=== PATIENT | male | born 1950 | race Two or more races ===

== ENCOUNTER 2019-03-28 11:49 | Emergency (ER) | payer OTHER ==
[~2019-03-28] VITALS: Ht 175.3 cm; Wt 97.5 kg
[2019-03-28] MEDS ORDERED: EFFEXOR XR150 MG PO (12:24)
[2019-03-28] MEDS ORDERED: GABAPENTIN100 M2 PO (12:24)
[2019-03-28] MEDS ORDERED: LOSARTAN POTAS100 MG PO (12:25)
[2019-03-28] MEDS ORDERED: TAMS0.4C PO (12:26)
[2019-03-28] MEDS ORDERED: INTUNIV1 MG PO (12:26)
== END 2019-03-28 14:27 | disposition home or self-care (01) ==
LOC: ER 11:49
DX: S00.83XD Contusion of other part of head, subsequent encounter (principal); W22.8XXD Striking against or struck by other objects, subsequent encounter